=== PATIENT | male | born 1960 | race Caucasian/White ===

== ENCOUNTER → 2018-12-30 | Emergency (ER) | payer BC ==
[2018-12-30] MEDS: HYDROCODONE/APAP (5/325) TAB PO (15:15)
[2018-12-30] MEDS: ONDANSETRON (ODT) 4 MG TAB ODT (15:15)
== END | disposition home or self-care (01) ==
LOC: FTE 14:40
DX: M54.9 Dorsalgia, unspecified (principal); I10 Essential (primary) hypertension
CPT/HCPCS: 99283